=== PATIENT | male | born 2000 | race Caucasian/White ===

== ENCOUNTER 2020-01-25 02:20 | Emergency (ER) | payer OTHER ==
[~2020-01-25] VITALS: Ht 170.2 cm; Wt 60.3 kg
[2020-01-25 02:26] VITALS: BP 120/83; Ht 170.2 cm; Wt 60.3 kg
== END 2020-01-25 03:14 | disposition home or self-care (01) ==
LOC: ED 02:20
DX: R07.89 Other chest pain (principal)
CPT/HCPCS: Q0092